=== PATIENT | female | born 1945 | race Caucasian/White ===

== ENCOUNTER → 2023-12-07 | Day surgery (SDC) | payer MEDICARE ==
--- NOTE | 2023-12-06 09:14 | P.HPOR ---
History of Present Illness H&P Date: 12/06/23 ubjective: This is a 78 year old female that presents today for initial evaluation regarding a several year history of progressively worsening right thumb, index and middle finger numbness and tingling with associated weakness. She's had 2 carpal tunnel surgeries performed on both the right and left side in the last 30 years. She states her initial surgery was performed over 20-25 years ago. She got complete relief of her symptoms until 5 years prior. She then underwent a revision carpal tunnel release in [place] 3 years ago and states she got mild relief from her symptoms. She has noticed over the last year to year and a half her symptoms have been progressively advancing. She now has constant burning in the fingertips. She denies any neck pain or radiation of her symptoms above the wrist. She states her right is much worse than her left. Physical Examination: LUE: AIN/PIN/Radial/Ulnar/Median motor intact. Radial/Ulnar/Median SILT. 2+/4 Radial/Ulnar pulses palpated. 5/5 APB, 5/5 FDI. Negative Finkelsteins, negative CMC grind, positive Durkan's compression. Previous incision in the palm present. RUE: AIN/PIN/Radial/Ulnar/Median motor intact. Radial/Ulnar/Median SILT. 2+/4 Radial/Ulnar pulses palpated. 4/5 APB, 5/5 FDI. Negative Finkelsteins, negative CMC grind, positive Durkan's compression. 2 previous surgical incisions in the palm. Imaging: X-Rays of the left hand 3 view taken in office today demonstrate severe degenerative changes at the thumb CMC joint. X-Rays of the right hand, 3 view taken in office today demonstrate severe degenerative changes at the thumb CMC joint. Impression: 1.)Bilateral recurrent carpal tunnel syndrome Plan: Diagnosis and treatment options were discussed with the patient. The complexity of her symptoms were discussed and we discussed that due to her worsening symptoms we could consider a revision carpal tunnel release although the outcomes is much less predictable since this is her 3rd carpal tunnel surgery and she expressed understanding. She is scheduled for a right revision open carpal tunnel release. Risks and benefits of surgery including bleeding, infection, damage to surrounding tissue, need for further surgery, residual numbness were discussed and the patient wished to go forward with surgery. She states she has her last incision open up and request stitches be left in for 2 weeks. The patient was agreeable with this plan. CC: Radha Delaney MD -Wong Quiroz DO Orthopedic Hand/Upper Extremity Surgeon Past Medical History Past Medical History: Cancer, Diabetes Mellitus, Hypertension, Osteoarthritis (OA) Additional Past Medical History / Comment(s): irregular heart rhythm during co lonoscopy. removed cancer from outside of rt lung. left lung has alot of scar tissue. History of Any Multi-Drug Resistant Organisms: None Reported Past Surgical History: Appendectomy, Cholecystectomy, Hysterectomy Additional Past Surgical History / Comment(s): removal of cancer off of rt lung.colonoscopy Past Anesthesia/Blood Transfusion Reactions: No Reported Reaction Smoking Status: Never smoker - Past Family History Father Family Medical History: Coronary Artery Disease (CAD) Mother Family Medical History: Cancer Additional Family Medical History / Comment(s): colon cancer Medications and Allergies Home Medications Medication Instructions Recorded Confirmed Type Aspirin 81 mg PO DAILY 12/05/23 12/05/23 History INSULIN LISPRO (HumaLOG) [humaLOG] 0 units SQ DIRECTED PRN 12/05/23 12/05/23 History Insulin Glargine,Hum.rec.anlog 12 units SQ HS 12/05/23 12/05/23 History [Lantus Solostar Pen] Insulin Glargine,Hum.rec.anlog 30 units SQ AC-BRKFST 12/05/23 12/05/23 History [Lantus Solostar Pen] Lisinopril/Hydrochlorothiazide 1 each PO DAILY 12/05/23 12/05/23 History [Zestoretic 20-12.5 mg Tablet] Metoprolol Succinate (ER) [Toprol 50 mg PO DAILY 12/05/23 12/05/23 History Xl] Omeprazole 20 mg PO DAILY 12/05/23 12/05/23 History Unk Multi Vitamin 1 tab PO DAILY 12/05/23 12/05/23 History Unk Vitamin D 1 tab PO DAILY 12/05/23 12/05/23 History Allergies Allergy/AdvReac Type Severity Reaction Status Date / Time codeine AdvReac Nausea & Verified 12/05/23 15:54 Vomiting meperidine [From Demerol] AdvReac Nausea & Verified 12/05/23 15:54 Vomiting Physical Examination Osteopathic Statement: *. No significant issues noted on an osteopathic structural exam other than those noted in the History and Physical/Consult.
[~2023-12-07] MED LIST: LACTATED RINGERS 1,000 ML IV SCH; LIDOCAINE 1% (10MG/ML) FOR IV START INTRADERMA PRN; LIDOCAINE 1% INJ 10MG/ML (20 ML MDV) ONE; MIDAZOLAM 2 MG/2 ML VIAL ONE; PHENYLEPHRINE 10 MG/ML VIAL ONE; PROPOFOL 10 MG/ML 20 ML VIAL IV ONE; Pre Op ABX Message 1 EACH MISC MISCELLANE ONE; fentaNYL (PF) 50 MCG/ML 2 ML AMP IV PRN; fentaNYL (PF) 50 MCG/ML 2 ML AMP ONE
[2023-12-07] MEDS: LACTATED RINGERS 1,000 ML IV ONE ×2 (11:53→13:34)
[2023-12-07 12:15] LABS: Glucose,Whole Blood 99 mg/dL (70-110)
[2023-12-07] MEDS: ONDANSETRON 4 MG/2 ML VIAL IVP ONE (12:29)
[2023-12-07 13:10] VITALS: PULSE 68; TEMP 97.4
[2023-12-07] MEDS: BUPIVACAINE (PF) 0.5% 30 ML VIAL SQ ONE (13:57)
[2023-12-07] MEDS: LIDOCAINE 2% INJ 20 MG/ML SQ ONE (13:57)
[2023-12-07 14:42] VITALS: BP 142/77; RESP 16
--- NOTE | 2023-12-08 17:53 | P.OP ---
Date of Procedure: 12/07/23 Preoperative Diagnosis: Right recurrent carpal tunnel syndrome Postoperative Diagnosis: Right recurrent carpal tunnel syndrome Procedure(s) Performed: Right revision open carpal tunnel release. -Modifier 22 Anesthesia: MAC Surgeon: Wong Quiroz Estimated Blood Loss (ml): 0 Pathology: none sent Condition: stable Disposition: PACU Description of Procedure: This is a 78 year old female who presents today for a revision right open carpal tunnel release after having failed conservative treatment in the past. Risks and benefits of surgery were discussed with the patient including bleeding, damage to surrounding tissue, infection, need for further surgery as well as risks of anesthesia including pulmonary embolism and even and the patient wished to proceed with surgical intervention. The patients was seen in the pre-operative area by myself. Consent and H&P were completed and updated. The correct extremity was marked in the pre-operative area by myself and all other questions were answered. Operative Narrative: The patient was brought to the operating room by the department of anesthesia. They remained on the portable stretcher and a rolling hand table was brought to the side of the operative extremity. Pre-operative time out was per formed indicating the correct patient, procedure and laterality. All in the room agreed. The patient was then drifted off to sleep by the department of anesthesia. MAC anesthesia was utilized and a 50:50 mixture of 1% Lidocaine and 0.5% bupivacaine was injected into the subcutaneous tissues of the palmar skin, 8ccs total. A nonsterile tourniquet was then applied to the operative extremity and the right upper extremity was then prepped and draped in normal sterile fashion. The operative extremity was the exsanguinated with an esmarch bandage and the tourniquet was inflated to 250mmHg. 15 blade scalpel was utilized to make a longitudinal incision on the palmar skin in line with the radial boarder of the ring finger to a point distally at the intersection of Ka[place] cardinal line through the site of her previous incisions. Heiss retractor was utilized to spread subcutaneous tissue and scalpel was used to cut through the superficial palmar fascia to reveal the transverse carpal ligament. The transverse carpal ligament was then sharply incised in line with the incision and tenotomy scissors were used to spread distally and the distal portion of the transverse carpal ligament was released using tenotomy scissors from distal to proximal under direct visualization. The median nerve was directly visualized and was intact. Proximal fascia of the distal forearm was also released under direct visualization taking care to preserve the palmar cutaneous branch of the median nerve. The wound was then closed with 4-0 nylon suture in a horizontal mattress fashion. Sterile dressing was applied consisting of adaptic, 4x4s, webril, and an sonia bandage. Tourniquet was let down and the hand immediately was well perfused. The patient was then woken by the department of anesthesia and transferred to PACU in stable condition. Modifier 22 is requested due to this being a revision of a revision open carpal tunnel release that required careful extensive dissection and exploration around abundant scar tissue surrounding neurovascular structures and altered anatomy due to the patient previous two procedures on the same hand for the same condition. Wong Quiroz D.O. Orthopedic Hand/Upper Extremity Surgeon
== END | disposition home or self-care (01) ==
LOC: OR 11:30
PROVIDERS: ATTEND Orthopaedic Surgery Hand Surgery
DX: G56.03 Carpal tunnel syndrome, bilateral upper limbs (principal); E11.9 Type 2 diabetes mellitus without complications; I10 Essential (primary) hypertension; M19.90 Unspecified osteoarthritis, unspecified site; Z88.5 Allergy status to narcotic agent; Z90.49 Acquired absence of other specified parts of digestive tract; Z90.710 Acquired absence of both cervix and uterus; Z79.899 Other long term (current) drug therapy; Z79.4 Long term (current) use of insulin; Z79.82 Long term (current) use of aspirin
CPT/HCPCS: 64721; J2001; J2405; J0665

== ENCOUNTER 2024-02-22 10:57 | Day surgery (SDC) | payer MEDICARE ==
--- NOTE | 2024-02-20 10:15 | P.HPOR ---
History of Present Illness H&P Date: 02/20/24 Subjective: This is a 78 year old female that presents today for a post-operative visit after undergoing right revision open carpal tunnel release on 12/07/23. They state they have improved numbness and mild pain in the palm and have been using the hand as tolerated. She states her left hand is having increased numbness and tingling and her symptoms are worsening, she had an open carpal tunnel release performed decades ago she states, her symptoms have been worsening over the last several months. Physical Examination: RUE: AIN/PIN/Radial/Ulnar/Median motor intact. Radial/Ulnar/Median SILT. 2+/4 Radial/Ulnar pulses palpated. Incision well healed. Able to make a full fist. LUE: AIN/PIN/Radial/Ulnar/Median motor intact. Radial/Ulnar/Median SILT. 2+/4 Radial/Ulnar pulses palpated. Old incision well healed. Able to make a full fist. Positive Durkan's compression. Impression: 1.) S/P Right open revision carpal tunnel release 2.) Left recurrent carpal tunnel syndrome Plan: Diagnosis and treatment options were discussed with the patient. They are healing as expected and may continue to use the hand as tolerated. She wishes to go forward with a revision left open carpal tunnel release. Risks and benefits of surgery including bleeding, infection, damage to surrounding tissue, need for further surgery, residual numbness were discussed and the patient wished to go forward with surgery. The patient is agreeable with this plan. -Wong Quiroz DO Orthopedic Hand/Upper Extremity Surgeon Past Medical History Past Medical History: Cancer, Diabetes Mellitus, Hypertension, Osteoarthritis (OA) Additional Past Medical History / Comment(s): irregular heart rhythm during colonoscopy. removed cancer from outside of rt lung. left lung has alot of scar tissue. History of Any Multi-Drug Resistant Organisms: None Reported Past Surgical History: Appendectomy, Cholecystectomy, Hysterectomy Additional Past Surgical History / Comment(s): removal of cancer off of rt lung.colonoscopy Past Anesthesia/Blood Transfusion Reactions: No Reported Reaction Smoking Status: Never smoker - Past Family History Father Family Medical History: Coronary Artery Disease (CAD) Mother Family Medical History: Cancer Additional Family Medical History / Comment(s): colon cancer Medications and Allergies Home Medications Medication Instructions Recorded Confirmed Type Aspirin 81 mg PO DAILY 12/05/23 12/07/23 History INSULIN LISPRO (HumaLOG) [humaLOG] 0 units SQ DIRECTED PRN 12/05/23 12/07/23 History Insulin Glargine,Hum.rec.anlog 12 units SQ HS 12/05/23 12/07/23 History [Lantus Solostar Pen] Insulin Glargine,Hum.rec.anlog 30 units SQ AC-BRKFST 12/05/23 12/07/23 History [Lantus Solostar Pen] Lisinopril/Hydrochlorothiazide 1 each PO DAILY 12/05/23 12/07/23 History [Zestoretic 20-12.5 mg Tablet] Metoprolol Succinate (ER) [Toprol 50 mg PO DAILY 12/05/23 12/07/23 History Xl] Omeprazole 20 mg PO DAILY 12/05/23 12/07/23 History Unk Multi Vitamin 1 tab PO DAILY 12/05/23 12/07/23 History Unk Vitamin D 1 tab PO DAILY 12/05/23 12/07/23 History Allergies Allergy/AdvReac Type Severity Reaction Status Date / Time codeine AdvReac Nausea & Verified 12/07/23 12:08 Vomiting meperidine [From Demerol] AdvReac Nausea & Verified 12/07/23 12:08 Vomiting Physical Examination Osteopathic Statement: *. No significant issues noted on an osteopathic structural exam other than those noted in the History and Physical/Consult.
[2024-02-21 09:51] VITALS: BMI 32.3
[~2024-02-22 10:57] MED LIST changes: -LACTATED RINGERS 1,000 ML IV SCH; -LIDOCAINE 1% (10MG/ML) FOR IV START INTRADERMA PRN; -LIDOCAINE 1% INJ 10MG/ML (20 ML MDV) ONE; -MIDAZOLAM 2 MG/2 ML VIAL ONE; -PHENYLEPHRINE 10 MG/ML VIAL ONE; -PROPOFOL 10 MG/ML 20 ML VIAL IV ONE; -fentaNYL (PF) 50 MCG/ML 2 ML AMP IV PRN; -fentaNYL (PF) 50 MCG/ML 2 ML AMP ONE
[2024-02-22 11:21] VITALS: TEMP 97.6
[2024-02-22 11:29] LABS: Glucose,Whole Blood 122 mg/dL (70-110)
[2024-02-22] MEDS: IV FLUID CONTINUATION 1,000 ML IV ONE (11:30)
[2024-02-22] MEDS: LACTATED RINGERS 1,000 ML IV SCH (11:30)
[2024-02-22] MEDS ORDERED: PROPOFOL 10 MG/ML 20 ML VIAL IV ONE (12:53)
[2024-02-22] MEDS ORDERED: fentaNYL (PF) 50 MCG/ML 2 ML AMP ONE (12:53)
[2024-02-22] MEDS ORDERED: LIDOCAINE 1% INJ 10MG/ML (20 ML MDV) ONE (12:53)
[2024-02-22] MEDS ORDERED: MIDAZOLAM 2 MG/2 ML VIAL ONE (12:53)
[2024-02-22] MEDS: BUPIVACAINE (PF) 0.5% 30 ML VIAL SQ ONE (12:59)
[2024-02-22] MEDS: BUPIVACAINE (PF) 0.25% 30 ML VIAL SQ ONE (12:59)
[2024-02-22] MEDS: LIDOCAINE 2% INJ 20 MG/ML SQ ONE (12:59)
--- NOTE | 2024-02-22 13:37 | P.OP ---
Date of Procedure: 02/22/24 Preoperative Diagnosis: Left recurrent carpal tunnel syndrome Postoperative Diagnosis: Left recurrent carpal tunnel syndrome Procedure(s) Performed: Left revision open carpal tunnel release -22 Anesthesia: MAC Surgeon: Wong Quiroz Paper Roller #1: Serafin Tanner Estimated Blood Loss (ml): 0 Pathology: none sent Condition: stable Disposition: PACU Description of Procedure: This is a 78 year old female who presents today for a revision left open carpal tunnel release after having failed conservative treatment in the past. Risks and benefits of surgery were discussed with the patient including bleeding, damage to surrounding tissue, infection, need for further surgery as well as risks of anesthesia including pulmonary embolism and even and the patient wished to proceed with surgical intervention. The patients was seen in the pre-operative a lizeth by myself. Consent and H&P were completed and updated. The correct extremity was marked in the pre-operative area by myself and all other questions were answered. Operative Narrative: The patient was brought to the operating room by the department of anesthesia. They remained on the portable stretcher and a rolling hand table was brought to the side of the operative extremity. Pre-operative time out was performed indicating the correct patient, procedure and laterality. All in the room agreed. The patient was then drifted off to sleep by the department of anesthesia. MAC anesthesia was utilized and a 50:50 mixture of 1% Lidocaine and 0.5% bupivacaine was injected into the subcutaneous tissues of the palmar skin, 8ccs total. A nonsterile tourniquet was then applied to the operative extremity and the left upper extremity was then prepped and draped in normal sterile fashion. The operative extremity was the exsanguinated with an esmarch bandage and the tourniquet was inflated to 250mmHg. 15 blade scalpel was utilized to make a longitudinal incision on the palmar skin in line with the radial boarder of the ring finger to a point distally at the in tersection of Kaplans cardinal line through the site of her previous incisions. Heiss retractor was utilized to spread subcutaneous tissue and scalpel was used to cut through the superficial palmar fascia to reveal the transverse carpal ligament. The transverse carpal ligament was then sharply incised in line with the incision and tenotomy scissors were used to spread distally and the distal portion of the transverse carpal ligament was released using tenotomy scissors from distal to proximal under direct visualization. The median nerve was directly visualized and was intact and was scarred down to the undersurface of the ligament far radial to the division of the transverse carpal ligament. The median nerve was gently free'd from surrounding scar tissue. Proximal fascia of the distal forearm was also released under direct visualization taking care to preserve the palmar cutaneous branch of the median nerve. The wound was then closed with 4-0 nylon suture in a horizontal mattress fashion. Sterile dressing was applied consisting of adaptic, 4x4s, webril, and an sonia bandage. Tourniquet was let down and the hand immediately was well perfused. The patient was then woken by the department of anesthesia and transferred to PACU in stable condition. Modifier 22 is requested due to this being a revision of a revision open carpal tunnel release that required careful extensive dissection and exploration around abundant scar tissue surrounding neurovascular structures and altered anatomy due to the patient previous procedure on the same hand for the same condition. Serafin GUSTAFSON was present to assist in retraction and protection of the neurovascular structures. Wong Quiroz D.O. Orthopedic Hand/Upper Extremity Surgeon
[2024-02-22 14:25] VITALS: BP 139/70; PULSE 60; RESP 18
== END 2024-02-22 14:00 | disposition home or self-care (01) ==
LOC: OR 10:57
PROVIDERS: ATTEND Orthopaedic Surgery Hand Surgery
DX: G56.02 Carpal tunnel syndrome, left upper limb (principal); E11.9 Type 2 diabetes mellitus without complications; I10 Essential (primary) hypertension; M19.90 Unspecified osteoarthritis, unspecified site; Z80.0 Family history of malignant neoplasm of digestive organs; Z90.49 Acquired absence of other specified parts of digestive tract; Z90.710 Acquired absence of both cervix and uterus; Z88.5 Allergy status to narcotic agent; Z79.82 Long term (current) use of aspirin; Z79.4 Long term (current) use of insulin; Z79.899 Other long term (current) drug therapy
CPT/HCPCS: 64721; J2001 ×2; J2250; J3010; J2704; J0665